=== PATIENT | female | born 1960 | race Caucasian/White ===

== ENCOUNTER 2017-11-07 10:46 | Emergency (ER) | payer OTHER ==
[~2017-11-07] VITALS: Ht 154.9 cm; Wt 90.3 kg
[~2017-11-07 10:46] MED LIST: ACCUNEB0.63 MG/3; ACETAMINOPHEN325 M1 PO; ADVAIR 500-501 EACH INH; AMOX TR-K CLV1 EAC4 PO; AMOXIL 875 MG875 M1; BACTRIM DS TAB1 EACH PO; FENTANYL PA25 MCG/HR; FUROSEMIDE 40 M40 MG PO; GABAPENTIN; HYDROCODON-ACE1 EACH PO; INDERAL LA60 M1 PO; KEFLEX250 MG PO; MOBIC15 MG PO; PREDNISONE 10 M10 M1; PREDNISONE 20 M20 M1 PO; PROVENTIL HFA6.7 G1 INH; ROBAXIN 750 MG750 M1 PO; SINGULAIR 10 MG10 MG PO; TESSALON PERLE100 MG PO; TOPAMAX50 MG PO; TRAMADOL; ZOFRAN ODT4 MG PO; hydrocodone
[2017-11-07 10:47] VITALS: BP 160/51
[2017-11-07 11:06] LABS: ABSOLUTE BASOPHILS 0.1 thou/uL (0.0-0.2); ABSOLUTE EOSINOPHILS 0.1 thou/uL (0.0-0.7); ABSOLUTE LYMPHOCYTES 0.7 thou/uL (0.8-5.3); ABSOLUTE MONOCYTES 0.5 thou/uL (0.0-1.2); ABSOLUTE NEUTROPHILS 4.8 thou/uL (1.6-8.1); BASOPHILS 0.8 %; EOSINOPHILS 1.8 %; HEMATOCRIT 38.5 % (37.0-47.0); HEMOGLOBIN 12.8 gm/dL (12.0-15.0); LYMPHOCYTES 11.5 %; MCH 30.6 pg (26.0-34.0); MCHC 33.4 g/dL (28.0-37.0); MCV 91.8 fL (80.0-100.0); MONOCYTES 8.3 %; MPV 7.8 fl. (7.2-11.1); NUCLEATED RBCS 0 /100WBC; PLATELET COUNT* 115 thou/uL (150-400); POLYS 77.6 %; RBC 4.19 mil/uL (4.20-5.00); RDW-CV 13.5 % (10.5-14.5); WBC 6.2 thou/uL (4.0-11.0)
[2017-11-07 11:13] LABS: CALCIUM 8.4 mg/dL (8.5-10.1); CREATININE 0.9 mg/dL (0.6-1.3); POTASSIUM 3.9 mmol/L (3.5-5.1)
[2017-11-07 11:18] LABS: ALBUMIN 3.4 g/dL (3.4-5.0); TOTAL BILIRUBIN 0.5 mg/dL (<0.1-1.0); TOTAL PROTEIN 7.1 g/dL (6.4-8.2)
[2017-11-07 11:43] LABS: INFLUENZA A ANTIGEN None Detected (None Detect); INFLUENZA B ANTIGEN None Detected (None Detect)
== END 2017-11-07 13:35 | disposition home or self-care (01) ==
LOC: M.ERS 10:46
PROVIDERS: Nurse Practitioner Family
DX: B34.9 Viral infection, unspecified (principal); M19.90 Unspecified osteoarthritis, unspecified site; J45.909 Unspecified asthma, uncomplicated; Z88.8 Allergy status to other drugs, medicaments and biological substances; Z91.040 Latex allergy status

== ENCOUNTER 2018-03-03 08:05 | Emergency (ER) | payer OTHER ==
[~2018-03-03] VITALS: Ht 154.9 cm; Wt 90.3 kg
[2018-03-03] MEDS ORDERED: PREDNISONE 20 M20 M1 PO (08:37)
[2018-03-03] MEDS ORDERED: ZPAK PO (08:37)
[2018-03-03] MEDS ORDERED: VENTOLIN HFA 1818 GM INH (08:37)
[2018-03-03] MEDS ORDERED: DUONEB 2.5-0.5 M3 ML INH (08:42)
[2018-03-03 08:46] VITALS: BP 163/59
== END 2018-03-03 08:46 | disposition home or self-care (01) ==
LOC: M.ERS 08:05
DX: J40 Bronchitis, not specified as acute or chronic (principal); M19.90 Unspecified osteoarthritis, unspecified site; M79.7 Fibromyalgia; Z91.040 Latex allergy status; Z88.8 Allergy status to other drugs, medicaments and biological substances

== ENCOUNTER 2018-10-28 01:12 | Emergency (ER) | payer OTHER ==
[~2018-10-28] VITALS: Ht 154.9 cm; Wt 93.0 kg
[~2018-10-28 01:12] MED LIST changes: +DUONEB 2.5-0.5 M3 ML INH; +VENTOLIN HFA 1818 GM INH; +ZPAK PO
[2018-10-28] MEDS ORDERED: TESSALON PERLE100 MG (01:43)
[2018-10-28 02:16] LABS: INFLUENZA A ANTIGEN None Detected (None Detect); INFLUENZA B ANTIGEN None Detected (None Detect)
[2018-10-28 03:27] LABS: URINE BILIRUBIN NEGATIVE (Negative); URINE BLOOD TRACE (Negative); URINE CLARITY CLEAR; URINE COLOR STRAW; URINE GLUCOSE-RANDOM NEGATIVE (Negative); URINE KETONES NEGATIVE (Negative); URINE LEUKOCYTES-REFLEX NEGATIVE (Negative); URINE NITRITE-REFLEX NEGATIVE (Negative); URINE PROTEIN NEGATIVE (Negative); URINE UROBILINOGEN 0.2 E.U./dl (0.2-1.0)
[2018-10-28] MEDS ORDERED: ALBUTEROL2.5 MG/31 INH (03:28)
[2018-10-28] MEDS ORDERED: PREDNISONE50 MG PO (03:28)
[2018-10-28 03:34] VITALS: BP 124/58
== END 2018-10-28 03:34 | disposition home or self-care (01) ==
LOC: M.ERS 01:12
PROVIDERS: Emergency Medicine
DX: J45.909 Unspecified asthma, uncomplicated (principal); M19.90 Unspecified osteoarthritis, unspecified site; M79.7 Fibromyalgia; Z91.040 Latex allergy status; Z88.8 Allergy status to other drugs, medicaments and biological substances

== ENCOUNTER 2019-01-18 02:02 | Emergency (ER) | payer OTHER ==
[~2019-01-18] VITALS: Ht 154.9 cm; Wt 96.2 kg
[~2019-01-18 02:02] MED LIST changes: +ALBUTEROL2.5 MG/31 INH; +PREDNISONE50 MG PO; +TESSALON PERLE100 MG
[2019-01-18] MEDS ORDERED: CHOLESTEROL MED (02:31)
[2019-01-18] MEDS ORDERED: RESTORIL15 MG PO (02:40)
[2019-01-18 03:13] VITALS: BP 157/54
[2019-01-18] MEDS ORDERED: LIDOCAINE PAIN1 EACH TRANSDERM (17:18)
== END 2019-01-18 03:13 | disposition home or self-care (01) ==
LOC: M.ERS 02:02
DX: M79.662 Pain in left lower leg (principal); M79.661 Pain in right lower leg; M79.7 Fibromyalgia; J45.909 Unspecified asthma, uncomplicated; M19.90 Unspecified osteoarthritis, unspecified site; F17.210 Nicotine dependence, cigarettes, uncomplicated; Z91.040 Latex allergy status; Z88.8 Allergy status to other drugs, medicaments and biological substances

== ENCOUNTER 2019-01-18 16:21 | Emergency (ER) | payer OTHER ==
[~2019-01-18] VITALS: Ht 154.9 cm; Wt 92.1 kg
[~2019-01-18 16:21] MED LIST changes: +CHOLESTEROL MED; +RESTORIL15 MG PO
[2019-01-18] MEDS ORDERED: LIDOCAINE PAIN1 EACH TRANSDERM (17:18)
[2019-01-18 17:26] VITALS: BP 141/70
== END 2019-01-18 17:39 | disposition home or self-care (01) ==
LOC: M.ERS 16:21
DX: G89.29 Other chronic pain (principal); M79.605 Pain in left leg; M79.7 Fibromyalgia; M19.90 Unspecified osteoarthritis, unspecified site; F17.210 Nicotine dependence, cigarettes, uncomplicated; Z91.040 Latex allergy status; Z88.8 Allergy status to other drugs, medicaments and biological substances